=== PATIENT | male | born 1955 | race Two or more races ===

== ENCOUNTER 2019-10-28 11:04 | Emergency (ER) | payer OTHER ==
[~2019-10-28] VITALS: Ht 182.9 cm; Wt 83.9 kg
[2019-10-28] MEDS ORDERED: GLIMEPIRIDE1 M1 (11:32)
[2019-10-28] MEDS ORDERED: HYDROCHLOROTHIA25 MG (11:32)
[2019-10-28] MEDS ORDERED: COZAAR100 MG (11:32)
[2019-10-28] MEDS ORDERED: MYSOLINE50 MG (11:33)
[2019-10-28] MEDS ORDERED: HORIZANT300 MG (11:34)
[2019-10-28] MEDS ORDERED: LIPITOR40 M1 (11:34)
[2019-10-28] MEDS ORDERED: PEPCID AC20 MG (11:36)
[2019-10-28] MEDS ORDERED: PROTONIX40 MG (11:36)
[2019-10-28] MEDS ORDERED: ALENDRONATE SOD70 MG (11:37)
== END 2019-10-28 16:06 | disposition home or self-care (01) ==
LOC: ER 11:04
DX: N28.1 Cyst of kidney, acquired (principal)

== ENCOUNTER 2020-06-19 16:39 | Emergency (ER) | payer OTHER ==
[~2020-06-19] VITALS: Ht 182.9 cm; Wt 81.6 kg
[~2020-06-19 16:39] MED LIST: ALENDRONATE SOD70 MG; COZAAR100 MG; GLIMEPIRIDE1 M1; HORIZANT300 MG; HYDROCHLOROTHIA25 MG; LIPITOR40 M1; MYSOLINE50 MG; PEPCID AC20 MG; PROTONIX40 MG
[2020-06-19] MEDS ORDERED: ANALPRAM HC 2.530 GM RECTAL (23:54)
== END 2020-06-19 23:53 | disposition home or self-care (01) ==
LOC: ER 16:39
DX: U07.1 COVID-19 (principal); K64.8 Other hemorrhoids; R10.84 Generalized abdominal pain; K62.5 Hemorrhage of anus and rectum